=== PATIENT | female | born 1960 | race Caucasian/White ===

== ENCOUNTER 2017-11-09 11:53 | Day surgery (SDC) | payer OTHER ==
[2017-11-09] MEDS ORDERED: FENTAnyl 50 MCG/ML VIAL (14:10)
[2017-11-09] MEDS ORDERED: MIDAZOLAM 1 MG/ML 2 ML INJ (14:10)
== END 2017-11-09 14:59 | disposition home or self-care (01) ==
LOC: GIL 11:53
DX: K64.0 First degree hemorrhoids (principal); K57.90 Diverticulosis of intestine, part unspecified, without perforation or abscess without bleeding; E11.9 Type 2 diabetes mellitus without complications; I10 Essential (primary) hypertension; E78.5 Hyperlipidemia, unspecified
CPT/HCPCS: 45378